=== PATIENT | female | born 1960 | race Two or more races ===

== ENCOUNTER → 2016-07-06 | Outpatient (CLI) | payer OTHER ==
[~2016-07-06] MED LIST: ACETAMINOPHEN PO; ASPIRIN81 MG PO; BENAZEPRIL; GLYNASE; HUMALOG100 U/M2 SUBQ; LANTUS100 U/ML SUBQ; LEVAQUIN PO; LISINOPRIL20 MG PO; METFORMIN; PRAVASTATIN SOD20 MG PO
--- NOTE | ~2016-07-06 | CR58 ---
[facility] A Service of [facility] RADIOLOGY TEXT RESULTS PATIENT: ROSE RHOADES LOCATION: [facility] : 64 UNIT #: [id number] AGE: [address]: MARISSA PEREZ SEX: F ORDER DR: [id number] [facility] [address] [place], [place] [address] [id number] O MR#: [id number] Acc #: [id number] NAME: ROSE RHOADES : 1960 SEX: F STUDY DATE/TIME: 07/06/2016 11:30 UNIT: [facility] ROOM: STUDY DESCRIPTION: CR Cervical Spine 2 or 3 Views Attending Physician: Franco Solitario Referring Physician: Franco Solitario Ordering Physician: Franco Solitario Primary Care Physician: Payton Drake M.D. MEDICAL IMAGING REPORT This report is preliminary unless electronic signature is present EXAM Cervical spine, 4 views. DATE OF EXAM 07/06/2016 HISTORY Neck pain, left side, extending to the left shoulder for 1 month. No known injury. FINDINGS AP and lateral projections of the cervical spine show satisfactory preservation of the cervical lordosis. The cervical soft tissues are normal. All anterior and posterior elements in the cervical area are anatomically normal without identifiable fracture, dislocation, malignant lytic or sclerotic change, or arthritis. There is no congenital defect apparent. IMPRESSION Normal cervical spine. Dictated by... Greg Meyer M.D. THIS IS AN ELECTRONICALLY VERIFIED REPORT Greg Meyer M.D. at 07/07/2016 7:48 AM CARLOS/rowdy TD: 07/06/2016 16:41 [facility] A Service of [facility] RADIOLOGY TEXT RESULTS PATIENT: ROSE RHOADES LOCATION: [facility] : 64 UNIT #: [id number] AGE: [address]: MARISSA PEREZ SEX: F ORDER DR: JOB #: [id number] MEDICAL IMAGING REPORT Page 1 of 1 COPY
== END | disposition home or self-care (01) ==
LOC: CRAD 11:15
DX: M54.2 Cervicalgia (principal)
CPT/HCPCS: 72040

== ENCOUNTER → 2016-10-25 | Outpatient (CLI) | payer OTHER | END | disposition home or self-care (01) | LOC: CECH 13:45 | DX: R07.9 Chest pain, unspecified (principal); R00.2 Palpitations; I10 Essential (primary) hypertension; E11.9 Type 2 diabetes mellitus without complications; I51.7 Cardiomegaly; I36.1 Nonrheumatic tricuspid (valve) insufficiency | CPT/HCPCS: 93306 ==

== ENCOUNTER 2016-11-15 08:56 | Emergency (ER) | payer OTHER ==
[~2016-11-15] VITALS: Ht 152.4 cm; Wt 90.7 kg
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
--- NOTE | ~2016-11-15 | CR181 ---
[facility] A Service of [facility] RADIOLOGY TEXT RESULTS PATIENT: ROSE RHOADES LOCATION: [place] : 64 UNIT #: [id number] AGE: [address]: BRITTNEY BARR SEX: F ORDER DR: [id number] [facility] [address] [place], [place] [address] [id number] E MR#: [id number] Acc #: [id number] NAME: ROSE RHOADES : 1960 SEX: F STUDY DATE/TIME: 11/15/2016 10:06 UNIT: [place] ROOM: STUDY DESCRIPTION: CR Lumbar Spine 2 or 3 Views Attending Physician: Brittney Barr Aprn Ordering Physician: Brittney Barr Aprn Primary Care Physician: Payton Drake M.D. MEDICAL IMAGING REPORT This report is preliminary unless electronic signature is present EXAM Lumbar spine 11/15 INDICATIONS Back pain and stiffness that started yesterday. FINDINGS 3 views of the lumbar spine were obtained. Patient is fused at L4 and L5 with pedicle screws and an interbody spacer. No fracture or subluxation is seen. There is mild lumbar levoscoliosis. There is some degenerative endplate spurring at multiple levels. Please note that the prior is unavailable due to a problem with the archive. 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 No fracture or subluxation. Dictated by... Everton West Jr., M.D. THIS IS AN ELECTRONICALLY VERIFIED REPORT Everton West Jr., M.D. at 11/16/2016 2:13 PM DEBBIE/rebecca TD: 11/15/2016 15:34 JOB #: [id number] MEDICAL IMAGING REPORT Page 1 of 1 COPY
== END 2016-11-15 10:50 | disposition home or self-care (01) ==
LOC: CFTX 08:56 → CED 08:56 → CFTX 09:38
DX: S16.1XXA Strain of muscle, fascia and tendon at neck level, initial encounter (principal); S39.012A Strain of muscle, fascia and tendon of lower back, initial encounter; S46.811A Strain of other muscles, fascia and tendons at shoulder and upper arm level, right arm, initial encounter; V49.00XA Driver injured in collision with unspecified motor vehicles in nontraffic accident, initial encounter; Y92.410 Unspecified street and highway as the place of occurrence of the external cause
CPT/HCPCS: 72040; 72100; 99284

== ENCOUNTER → 2016-11-15 | Outpatient (CLI) | payer OTHER ==
--- NOTE | ~2016-11-15 | CR63 ---
[facility] A Service of [facility] RADIOLOGY TEXT RESULTS PATIENT: ROSE RHOADES LOCATION: [facility] : 64 UNIT #: [id number] AGE: [address]: Bharathi Carr DPM SEX: F ORDER DR: [id number] [facility] [address] [place], [place] [address] [id number] O MR#: [id number] Acc #: [id number] NAME: ROSE RHOADES : 1960 SEX: F STUDY DATE/TIME: 11/15/2016 8:49 UNIT: [facility] ROOM: STUDY DESCRIPTION: CR Chest 2 View Attending Physician: Bharathi Carr D.P.M. Referring Physician: Bharathi Carr D.P.M. Ordering Physician: Bharathi Carr D.P.M. Primary Care Physician: Payton Drake M.D. MEDICAL IMAGING REPORT This report is preliminary unless electronic signature is present EXAM Chest x-ray 11/15/2016. INDICATIONS Preoperative exam for ankle surgery. History of hypertension. COMPARISON 11/21/2014 FINDINGS PA and lateral examination of the chest upright shows a good expansion of the parenchyma with a normal distribution of the pulmonary vascularity. There is no indication of congestion, effusion, infiltrate, tumor, or nodular density. The pleural reflections and diaphragmatic contours are normal. The cardiac silhouette and mediastinal anatomy is within normal limits. IMPRESSION Normal chest. Dictated by... Everton West Jr., M.D. THIS IS AN ELECTRONICALLY VERIFIED REPORT Everton West Jr., M.D. at 11/16/2016 2:09 PM DEBBIE/wen TD: 11/15/2016 14:07 JOB #: [id number] MEDICAL IMAGING REPORT Page 1 of 1 COPY
[2016-11-15 08:41] LABS: HEMATOCRIT 35.7 % (35.0-45.0); HEMOGLOBIN 12.1 gm/dL (12.0-16.0); MEAN CELL VOLUME 87.1 FL (83-96); MEAN CORPUSCULAR HEMOGLOBIN 29.5 PG (28-34); MEAN CORPUSCULAR HGB CONC 33.9 g/dL (30-36); MEAN PLATELET VOLUME 8.4 FL (6.5-11.5); RED BLOOD COUNT 4.1 X10e (3.90-5.30); RED CELL DISTRIBUTION WIDTH 14.4 % (11.0-15.5); WHITE BLOOD COUNT 8.5 X10e3 (4.0-10.5)
[2016-11-15 09:18] LABS: BUN/CREATININE RATIO 15.71; CALCIUM SERUM 9.2 mg/dL (8.4-10.2); CREATININE SERUM 0.7 mg/dL (0.6-1.4); GLOM FILT RATE Estimated 98.9 mL/min (>60); POTASSIUM 4.2 mmol/L (3.5-5.1)
== END | disposition home or self-care (01) ==
LOC: CLAB 08:19
PROVIDERS: Podiatrist Foot & Ankle Surgery
DX: Z01.818 Encounter for other preprocedural examination (principal)
CPT/HCPCS: 36415; 71020; 80048; 85027